=== PATIENT | female | born 1970 | race Caucasian/White ===

== ENCOUNTER 2017-01-24 16:13 | Emergency (ER) | payer OTHER ==
[~2017-01-24] VITALS: Ht 162.6 cm; Wt 124.7 kg
[~2017-01-24 16:13] MED LIST: FLEXERIL10 MG PO; GLYBURIDE5 MG; IBUPROFEN600 MG PO; KEFLEX500 MG PO; LIDODERM 5% P1 PATCH TD; LISINOPRIL2.5 MG PO; LOPID600 MG PO; METFORMIN HCL; NORCO 5/3251 TABLET PO; PRAVASTATIN SOD20 MG PO; PROAIR HFA8.5 GM IH; SYMBICORT; SYMBICORT60 INHALAT IH; VENTOLIN HFA18 GM IH
[2017-01-24] MEDS ORDERED: ULTRAM50 MG PO (18:07)
[2017-01-24 18:15] VITALS: BP 162/78
== END 2017-01-24 18:17 | disposition home or self-care (01) ==
LOC: EME 16:13
DX: S86.811A Strain of other muscle(s) and tendon(s) at lower leg level, right leg, initial encounter (principal); W18.30XA Fall on same level, unspecified, initial encounter; E11.9 Type 2 diabetes mellitus without complications; I10 Essential (primary) hypertension; J45.909 Unspecified asthma, uncomplicated; Z87.891 Personal history of nicotine dependence
CPT/HCPCS: 73564; 99281; 99283